=== PATIENT | male | born 1990 | race Caucasian/White ===

== ENCOUNTER 2016-10-14 01:29 | Emergency (ER) | payer MEDICAID ==
[2016-10-14 01:38] VITALS: RESP 16
[2016-10-14] MEDS ORDERED: OXYCODONE/APAP 5/325 TAB PO ONE (01:58)
--- NOTE | 2016-10-14 03:13 | EDPHY ---
H & P Stated Complaint: dental pain Time Seen by Provider: 10/14/16 01:40 HPI/ROS: Chief complaint: Dental pain HPI: 26-year-old male presenting with left upper molar dental pain which started yesterday. It has been worsening is been able to tolerate the pain since. Patient states that he was told that he needed to have these teeth extracted last summer but did not go through with it as he was afraid. It hurts to eat on that side. No difficulty swallowing. Pain is described as a 10 /10. ROS: 10 point Review of Systems is negative except as noted in the HPI. Physical exam: General: Awake, alert, uncomfortable appearing Mouth:. He has tenderness to the left upper 2nd and 3rd molar to percussion. There is no erythema. There is no pointing. Otherwise has dentition in fairly good condition. No obvious large dental caries. Neck: No cervical lymphadenopathy. - Personal History Current Tetanus Diphtheria and Acellular Pertussis (TDAP): Unsure - Medical/Surgical History Hx Asthma: No Hx Chronic Respiratory Disease: No Hx Diabetes: No Hx Cardiac Disease: No Hx Renal Disease: No Hx Cirrhosis: No Hx Alcoholism: No Hx HIV/AIDS: No Hx Splenectomy or Spleen Trauma: No Other PMH: denies - Social History Smoking Status: Current every day smoker Constitutional: Initial Vital Signs Temperature (C) 36.6 C 10/14/16 01:35 Heart Rate 88 10/14/16 01:35 Respiratory Rate 16 10/14/16 01:35 Blood Pressure 154/77 H 10/14/16 01:35 O2 Sat (%) 96 10/14/16 01:35 O2 Delivery Mode Room Air Allergies/Adverse Reactions: amoxicillin Allergy (Verified 10/14/16 01:35) Home Medications: Medication Instructions Recorded Clindamycin HCl [Clindamycin] 300 mg PO TID #20 cap 10/14/16 Tylenol 10/14/16 Medical Decision Making Procedures: Procedure: Regional anesthesia. A dental block was performed for left molar pain indication. The block was performed with Marcaine with epinephrine. The patient experienced complete pain relief. The procedure was performed by myself. ED Course/Re-evaluation: Patient with dental pain. Likely dental abscess. He has been had a regional nerve block with good effect. He was also given Percocet. Will be discharged with clindamycin as he is allergic to amoxicillin. Will follow up, I have given him referrals to dental aid. - Data Points Medications Given: Discontinued Medications Oxycodone/Acetaminophen (Percocet 5/325) 2 tab PO EDNOW ONE Stop: 10/14/16 01:59 Last Admin: 10/14/16 02:05 Dose: 2 tab Departure - Departure Disposition: Home, Routine, Self-Care Clinical Impression: Pain, dental, Dental abscess Condition: Good Instructions: Toothache (ED), Dental Abscess (ED) Additional Instructions: Follow up at dental aid later today. Referrals: NONE *PRIMARY CARE P,. [Primary Care Provider] - As per Instructions [facility] [Outside] - As per Instructions Prescriptions: Clindamycin HCl [Clindamycin] 300 mg PO TID #20 cap
[2016-10-14] MEDS ORDERED: CLINDAMYCIN 150MG PREPACK#6 BTL TAKEHOME ONE (03:14)
[2016-10-14] MEDS ORDERED: OXYCODONE/APAP 5/325MG PREPACK#4 BTL TAKEHOME ONE (03:15)
[2016-10-14 03:42] VITALS: BP 132/75; PULSE 77; TEMP 98.2; O2SAT 96
== END 2016-10-14 03:45 | disposition home or self-care (01) ==
PROC: 3E0X3CZ (ICD-10-PCS; principal; 2016-10-14)
DX: K08.89 Other specified disorders of teeth and supporting structures (principal); K04.7 Periapical abscess without sinus; F17.200 Nicotine dependence, unspecified, uncomplicated